=== PATIENT | male | born 1955 | race Caucasian/White ===

== ENCOUNTER 2019-05-15 14:09 | Emergency (ER) | payer MEDICARE, MEDICAID ==
[~2019-05-15] VITALS: Ht 177.8 cm; Wt 45.8 kg
[2019-05-15 15:00] VITALS: BP 152/89
[2019-05-15] MEDS ORDERED: IPRATROPIUM BROM 0.5 MG/2.5ML INH SOL NEB ONE (15:30)
[2019-05-15] MEDS ORDERED: ALBUTEROL SULF 2.5 MG/0.5ML(0.5%) NEB SOLN NEB ONE (15:30)
== END 2019-05-15 16:00 | disposition home or self-care (01) ==
LOC: ER 14:09
DX: R05 Cough (principal); R06.02 Shortness of breath; Z76.0 Encounter for issue of repeat prescription; I10 Essential (primary) hypertension; J44.9 Chronic obstructive pulmonary disease, unspecified
CPT/HCPCS: 94640; 99283; J7644